=== PATIENT | male | born 1975 | race Caucasian/White ===

== ENCOUNTER 2021-04-17 10:57 | Emergency (ER) | payer OTHER ==
[~2021-04-17 10:57] MED LIST: CORDARONE 200M200 MG PO; ELIQUIS5 MG PO; IMODIUM CAP 2 MG2 MG PO; JANUVIA100 MG PO; LASIX20 MG PO; LIPITOR40 MG PO; LOVASTATIN20 MG PO; NITROSTAT 0.40.4 MG SL; NORFLEX 100 MG100 MG PO; PRINIVIL10 MG PO; ROBITUSSIN AC480 ML PO; TOPROL XL50 MG PO; VIBRAMYCIN100 MG PO; Voltaren Gel 1 % TOP
[2021-04-17 12:26] LABS: HEMOGLOBIN 15.4 gm/dl (14.0-17.5); RED BLOOD COUNT 4.79 M/UL (4.20-5.50); WHITE BLOOD COUNT 7.5 K/UL (4.5-11.0)
[2021-04-17 12:54] LABS: BUN/CREATININE RATIO 10 (0-10)
[2021-04-17] MEDS ORDERED: HYDROCODON-ACE1 EAC4 PO (15:10)
== END 2021-04-17 15:27 | disposition home or self-care (01) ==
LOC: ER1 10:57
PROVIDERS: Emergency Medicine
DX: R51.9 Headache, unspecified (principal); M54.31 Sciatica, right side; I48.91 Unspecified atrial fibrillation; Z20.822 Contact with and (suspected) exposure to COVID-19; E11.9 Type 2 diabetes mellitus without complications; Z79.01 Long term (current) use of anticoagulants; Z90.49 Acquired absence of other specified parts of digestive tract
CPT/HCPCS: 70450; 71045; 72131; 80053; 82550; 82553; 82962; 83874; 84484; 85025; 87040; 96374; 96375; 99284; J2270; J2405; U0002

== ENCOUNTER 2021-04-18 09:51 | Emergency (ER) | payer OTHER ==
[~2021-04-18 09:51] MED LIST changes: +HYDROCODON-ACE1 EAC4 PO
[2021-04-18 14:33] LABS: WHITE BLOOD COUNT 7.8 K/UL (4.5-11.0)
[2021-04-18 14:38] LABS: RED BLOOD COUNT 5.31 M/UL (4.20-5.50)
[2021-04-18 15:42] LABS: BUN/CREATININE RATIO 11 (0-10)
== END 2021-04-18 16:02 | disposition home or self-care (01) ==
LOC: ER1 09:51
PROVIDERS: Physician Assistant
DX: M79.604 Pain in right leg (principal); R51.9 Headache, unspecified; R53.81 Other malaise; I48.91 Unspecified atrial fibrillation
CPT/HCPCS: 71045; 80053; 81001; 82550; 82553; 83874; 84484; 85025; 87081; 87880; 93971; 99284

== ENCOUNTER → 2022-04-05 | Outpatient (CLI) | payer OTHER | LOC: KOH-I 15:14 | DX: M25.571 Pain in right ankle and joints of right foot (principal); M25.871 Other specified joint disorders, right ankle and foot; M25.522 Pain in left elbow | CPT/HCPCS: 73700 ==